=== PATIENT | male | born 1945 | race Hispanic/Latino ===

== ENCOUNTER → 2018-11-07 | Outpatient (CLI) | payer MEDICARE ==
--- NOTE | 2018-11-07 14:12 | Diagnostic Imaging Report ---
Lumbar spine series, 5 views. History: Left hip pain. Comparison: None available. Discussion: The paraspinal soft tissues are unremarkable. The alignment of the lumbar spine is normal. There is no evidence of fracture, spondylolisthesis, or spondylolysis. Moderate disc space narrowing and osteophytosis are present throughout the lumbar spine. 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 Signed by: Bhanu Gunn on 11/07/2018 2:08 PM
--- NOTE | 2018-11-07 14:13 | Diagnostic Imaging Report ---
Sacrum, 2 views. History: Left hip pain. Findings: The soft tissues are normal. Bone mineralization is normal. There is no evidence of fracture or dislocation. There are no lytic or sclerotic lesions. There is mild bilateral SI joint sclerosis. IMPRESSION: Mild SI joint sclerosis. No acute findings. Signed by: Bhanu Gunn on 11/07/2018 2:09 PM
--- NOTE | 2018-11-07 14:14 | Diagnostic Imaging Report ---
Left hip, 2 views. History: Left hip pain. Findings: The soft tissues are normal. Bone mineralization is normal. There is no evidence of fracture or dislocation. There are no lytic or sclerotic lesions. There is mild superior joint space narrowing and subchondral sclerosis. IMPRESSION: Mild left hip DJD. Signed by: Bhanu Gunn on 11/07/2018 2:10 PM
== END ==
LOC: RAD 12:56
PROVIDERS: ATTEND Internal Medicine
DX: M16.12 Unilateral primary osteoarthritis, left hip (principal); M47.817 Spondylosis without myelopathy or radiculopathy, lumbosacral region
CPT/HCPCS: 72110; 72220